=== PATIENT | female | born 1975 | race Caucasian/White ===

== ENCOUNTER → 2016-11-27 | Day surgery (SDC) | payer MEDICARE, OTHER ==
[~2016-11-27] MED LIST: DOCUSATE SODIU100 MG PO; DOXEPIN HCL25 MG PO; FLEXERIL10 MG PO; HYDROCODON-ACE1 EAC1 PO; HYDROCODON-ACE1 EAC9 PO; MELATONIN3 MG PO; NEURONTIN PO; REQUIP0.25 MG PO; TRAZODONE HCL150 MG PO; TUMS500 M1; VALERIAN PO; ZOLOFT100 MG PO
--- NOTE | ~2016-11-27 | OR ---
Unit #: [id number] #: [id number] Patient: FARHAN HILL [id number] [address] [id number] O MR#: [id number] NAME: FARHAN HILL ROOM: Date of Procedure: 11/27/2016 Admission Date: 11/27/2016 Surgeon: Cory Briones M.D. : 1975 Attending Physician: Cory Briones M.D. Referring Physician: Cory Briones M.D. OPERATIVE REPORT PREOPERATIVE DIAGNOSIS Rectal bleed. POSTOPERATIVE DIAGNOSIS Normal colon. PROCEDURE PERFORMED Colonoscopy to cecum. ANESTHESIA IV sedation. COMPLICATIONS None. INDICATIONS FOR PROCEDURE The patient is a 41-year-old lady, who presents with a rectal bleed. DESCRIPTION OF PROCEDURE The patient was taken to the operating theater and placed in left lateral decubitus position. IV sedation was initiated. Digital rectal exam was normal. Colonoscope was then passed under direct vision and navigated to the cecum. The patient had excellent prep. I visualized the entire colon. I saw no evidence of neoplastic lesions. There were no diverticula and no colitis. She tolerated the procedure well and sent to the recovery room in good condition. PLAN Recommend Colace on a b.i.d. basis. Dictated by... Hermes Huertas/annamarial TD: 11/27/2016 16:16 JOB #: [id number] Unit #: [id number] #: [id number] Patient: FARHAN HILL OPERATIVE REPORT X Cory Briones MD X PROCEDURE OPERATIVE NOTE
== END | disposition home or self-care (01) ==
LOC: COPS 10:50
PROVIDERS: Surgery
PROC: 0DJD8ZZ Inspection of Lower Intestinal Tract, Via Natural or Artificial Opening Endoscopic (ICD-10-PCS; principal; 2016-11-27 12:30)
DX: K62.5 Hemorrhage of anus and rectum (principal); K21.9 Gastro-esophageal reflux disease without esophagitis; R13.10 Dysphagia, unspecified; E78.00 Pure hypercholesterolemia, unspecified; E66.01 Morbid (severe) obesity due to excess calories; Z68.27 Body mass index [BMI] 27.0-27.9, adult; E11.9 Type 2 diabetes mellitus without complications; Z85.3 Personal history of malignant neoplasm of breast; Z79.891 Long term (current) use of opiate analgesic; F17.200 Nicotine dependence, unspecified, uncomplicated; M48.00 Spinal stenosis, site unspecified; Z79.811 Long term (current) use of aromatase inhibitors; K52.9 Noninfective gastroenteritis and colitis, unspecified; Z72.4 Inappropriate diet and eating habits; M19.90 Unspecified osteoarthritis, unspecified site; Z87.440 Personal history of urinary (tract) infections; Q05.9 Spina bifida, unspecified; Z98.84 Bariatric surgery status; Z90.13 Acquired absence of bilateral breasts and nipples; Z90.710 Acquired absence of both cervix and uterus; Z88.8 Allergy status to other drugs, medicaments and biological substances
CPT/HCPCS: 82947; 84703; J2250